=== PATIENT | female | born 1980 | race Caucasian/White ===

== ENCOUNTER 2019-04-22 14:23 | Emergency (ER) | payer OTHER, MEDICAID ==
[~2019-04-22] VITALS: Ht 152.4 cm; Wt 64.9 kg
[2019-04-22 14:30] VITALS: BP 144/76
--- NOTE | 2019-04-22 14:30 | NUR ---
39/F BIBA FROM HOME CARE, C/O L FOOT SWELLING/PAIN, NOTICED THIS AM. PT DENIES TRAUMA/INJURY. L FOOT WITH NO OBVIOUS SWELLING OR DEFORMITY, +CMS DISTALLY. REPORTS PAIN ON DORSAL SURFACE OF L FOOT. PT AMBULATORY, ABLE TO BEAR WEIGHT ON L FOOT BUT REPORTS PAIN. PT AWAKE AND ALERT, SKIN NORMAL COLOR WARM AND DRY, RR EVEN AND UNLABORED. HX CARDIAC D/O WITH R CHEST PACER/DEFIB, MYOTONIC DYSTROPHY, HTN, HLD, ANEMIA
--- NOTE | 2019-04-22 14:58 | NUR ---
pt to radiology via
--- NOTE | 2019-04-22 15:33 | NUR ---
CALLED MADE TO [facility] TO PICK PT UP. WILL BE HERE IN 10 MINUTES.
[2019-04-22 16:20] VITALS: BP 145/78
== END 2019-04-22 16:20 | disposition home or self-care (01) ==
LOC: MED 14:23
DX: S93.602A Unspecified sprain of left foot, initial encounter (principal); I10 Essential (primary) hypertension; Z86.79 Personal history of other diseases of the circulatory system; Z88.5 Allergy status to narcotic agent; X58.XXXA Exposure to other specified factors, initial encounter; Y93.89 Activity, other specified; Y92.89 Other specified places as the place of occurrence of the external cause; Y99.8 Other external cause status
CPT/HCPCS: 73630; 99283